=== PATIENT | female | born 1955 | race Caucasian/White ===

== ENCOUNTER 2020-03-31 07:57 | Inpatient (IN) | payer OTHER ==
[~2020-03-31] VITALS: Ht 154.9 cm; Wt 90.7 kg
[2020-03-31] MEDS ORDERED: ACETAMINOPHEN 325MG TABLET PO ONE (08:30)
[2020-03-31 08:32] LABS: BASOPHILS % 0.5 % (0.0-2.0); HEMATOCRIT. 48.3 % (36.0-48.0); HEMOGLOBIN. 16.4 g/dL (12.0-16.0); LYMPHOCYTES % 9.7 % (20.0-50.0); MEAN CORPUSCULAR HEMOGLOBIN 30.7 pg (28.0-32.0); MEAN CORPUSCULAR VOLUME 90.6 fL (81.0-99.0); MEAN PLATELET VOLUME 10.4 fl (7.4-10.4); MONOCYTES % 9.5 % (2.0-8.0); NEUTROPHILS % 80.3 % (40.0-76.0); PLATELET 223 x1000/uL (130-400); RED BLOOD CELL COUNT 5.34 mill/uL (4.2-5.4); RED CELL DISTRIBUTION WIDTH 14.2 % (11.6-14.6)
[2020-03-31 08:39] LABS: CHLORIDE 99 mEq/L (98-107)
[2020-03-31 08:48] LABS: CREATINE KINASE 296 IU/L (26-192)
[2020-03-31 08:51] LABS: D-DIMER 8.08 mg/L FEU (<0.50); INR 1.1; PROTHROMBIN TIME 11.2 sec (9.6-11.0)
[2020-03-31 09:14] LABS: CLARITY URINE CLOUDY (CLEAR); COLOR URINE DARK YELLOW (YELLOW); KETONES URINE TRACE (NEGATIVE); LEUKOCYTE ESTERASE URINE TRACE (NEGATIVE); NITRITE URINE NEGATIVE (NEGATIVE); OCCULT BLOOD URINE 2+ (NEGATIVE); PH URINE 5.5 (4.5-8.0); PROTEIN URINE 4+ (NEGATIVE); SPECIFIC GRAVITY URINE 1.027 (1.005-1.030)
[2020-03-31] MEDS ORDERED: AZITHROMYCIN 500 MG in DEXT 5% WATER 250 ML IV ONE (10:15)
[2020-03-31] MEDS ORDERED: CEFTRIAXONE 1 G PREMIX 50 ML IV ONE (10:15)
[2020-03-31 12:23] LABS: BG BASE EXCESS 0.8 mmol/L (-2.0-2.0); BG CARBOXYHEMOGLOBIN 0.1 % (0.5-1.5); BG DEOXYHEMOGLOBIN 13.3 % (0.0-5.0); BG FRACTION INSPIRED OXYGEN 100; BG HCO3 ACT 24.5 mmol/L (22.0-26.0); BG METHEMOGLOBIN 0.2 % (0.0-1.5); BG OXYGEN SATURATION 86.7 % (92.0-98.5); BG OXYHEMOGLOBIN 86.4 % (94.0-97.0); BG PCO2 36.8 mmHg (35.0-45.0); BG PH 7.442 (7.350-7.450); BG PO2 51.9 mmHg (75.0-100.0); BG SAMPLE SITE RIGHT BRACHIAL; BG TOTAL HEMOGLOBIN 15.1 g/dL (12.0-18.0); BG VENT MODE MASK - NRB
[2020-03-31] MEDS ORDERED: CLONIDINE 0.1MG TABLET PO PRN (14:15)
[2020-03-31] MEDS ORDERED: NA PHOS,M-B/NA PHOS,DI-BA ENEMA 118ML PR PRN (14:15)
[2020-03-31] MEDS ORDERED: GUAIFENESIN 200MG/10ML SUGAR FREE UDC PO PRN (14:15)
[2020-03-31] MEDS ORDERED: ONDANSETRON HCL 4MG/2ML INJ IV PRN (14:15)
[2020-03-31] MEDS ORDERED: MAGNESIUM/ALUMINUM HYDROXIDE/SIMETHICONE 30ML UDC PO PRN (14:15)
[2020-03-31] MEDS ORDERED: DOCUSATE SODIUM 100MG CAPSULE PO PRN (14:15)
[2020-03-31] MEDS ORDERED: ACETAMINOPHEN 325MG TABLET PO PRN ×2 (14:15)
[2020-03-31] MEDS ORDERED: KETOROLAC 15MG/ML VIAL IV PRN (14:15)
[2020-03-31] MEDS ORDERED: ALBUTEROL 6.7GM HFA INHALER ORI PRN (14:15)
[2020-03-31] MEDS ORDERED: TRAMADOL 50MG TABLET PO PRN (14:15)
[2020-03-31] MEDS ORDERED: ENOXAPARIN 40MG/0.4ML SYR SUBCUT SCH (14:15)
[2020-03-31] MEDS ORDERED: SODIUM CHLORIDE 0.9% 1000ML BAG (SEPSIS BOLUS) IV ONE (14:15)
[2020-03-31] MEDS ORDERED: SODIUM CHLORIDE 0.9% 2,730 ML IV SCH (14:45)
[2020-03-31] MEDS: ALBUTEROL 6.7GM HFA INHALER ORI SCH (15:00)
[2020-03-31 16:37] LABS: VITAMIN B12 SERUM >2000 pg/mL pg/mL (211-911)
[2020-03-31 16:39] LABS: FOLIC ACID (FOLATE) SERUM > 20.00 ng/mL (>5.38)
[2020-03-31] MEDS ORDERED: ZOLPIDEM TARTRATE 5MG TABLET PO PRN (21:00)
[2020-03-31] MEDS: FAMOTIDINE 20MG TABLET PO SCH (21:38)
[2020-03-31] MEDS: ENOXAPARIN 30MG/0.3ML SYR SUBCUT SCH (21:38)
[2020-03-31] MEDS: GUAIFENESIN/DM 600MG/30MG ER TAB 12HR PO SCH (21:38)
[2020-03-31] MEDS: ASCORBIC ACID 500 MG TABLET PO SCH (21:38)
[2020-04-01 06:29] LABS: BASOPHILS % 0.6 % (0.0-2.0); EOSINOPHILS % 0.1 % (0.0-5.0); HEMATOCRIT. 47.3 % (36.0-48.0); MEAN CORPUSCULAR HEMOGLOBIN 30.7 pg (28.0-32.0); MEAN CORPUSCULAR VOLUME 90.6 fL (81.0-99.0); MEAN PLATELET VOLUME 10.2 fl (7.4-10.4); MONOCYTES % 5.3 % (2.0-8.0); PLATELET 175 x1000/uL (130-400); RED BLOOD CELL COUNT 5.23 mill/uL (4.2-5.4); RED CELL DISTRIBUTION WIDTH 14.1 % (11.6-14.6)
[2020-04-01 06:53] LABS: CHLORIDE 102 mEq/L (98-107)
[2020-04-01 07:01] LABS: PHOSPHORUS 4.2 mg/dL (2.5-4.9)
[2020-04-01 07:04] LABS: CREATINE KINASE 545 IU/L (26-192); CREATINE KINASE MB FRACTION 3.9 ng/mL (0.5-3.6)
[2020-04-01] MEDS ORDERED: CEFTRIAXONE 1,000 MG in DEXTROSE 5% WATER 50 ML IV SCH (08:00)
[2020-04-01] MEDS ORDERED: CEFTRIAXONE 1 G PREMIX 50 ML IV SCH (09:00)
[2020-04-01] MEDS ORDERED: ASPIRIN 325MG EC TABLET PO SCH (09:00)
[2020-04-01] MEDS ORDERED: ZINC SULFATE 220 MG ( 50 ) CAPSULE PO SCH (09:00)
[2020-04-01] MEDS ORDERED: DEXAMETHASONE 10 MG/ML VIAL IV SCH (09:00)
[2020-04-01] MEDS ORDERED: AZITHROMYCIN 500 MG in DEXT 5% WATER 250 ML IV SCH (09:00)
[2020-04-01 10:00] VITALS: BP 90/60
[2020-04-01 12:00] VITALS: BP 97/63
[2020-04-01] MEDS: FAMOTIDINE 20MG TABLET PO SCH (12:52)
[2020-04-01] MEDS: ENOXAPARIN 30MG/0.3ML SYR SUBCUT SCH (12:52)
[2020-04-01] MEDS: ASCORBIC ACID 500 MG TABLET PO SCH (12:53)
[2020-04-01] MEDS: GUAIFENESIN/DM 600MG/30MG ER TAB 12HR PO SCH ×2 (12:53→21:00)
[2020-04-01 16:00] VITALS: BP 100/63
[2020-04-01 20:00] VITALS: BP 107/67
[2020-04-01] MEDS: ALBUTEROL 6.7GM HFA INHALER ORI SCH ×2 (20:22→21:00)
[2020-04-02] VITALS: BP 104/71
[2020-04-02] MEDS: ENOXAPARIN 30MG/0.3ML SYR SUBCUT SCH (01:02)
[2020-04-02] MEDS: FAMOTIDINE 20MG TABLET PO SCH (01:02)
[2020-04-02] MEDS: ASCORBIC ACID 500 MG TABLET PO SCH (01:03)
[2020-04-02] MEDS: ALBUTEROL 6.7GM HFA INHALER ORI SCH (02:42)
[2020-04-02 04:00] VITALS: BP 102/75
== END 2020-04-02 06:30 | disposition expired | DRG 871 ==
LOC: ER 07:57 → 7WST 11:54 → SUPCPDRO 18:51 → ENRESERV 04-01 07:23
PROVIDERS: ADMIT Internal Medicine; ATTEND Internal Medicine
PROC: 5A09357 Assistance with Respiratory Ventilation, Less than 24 Consecutive Hours, Continuous Positive Airway Pressure (ICD-10-PCS; 2020-04-01)
PROC: 5A12012 Performance of Cardiac Output, Single, Manual (ICD-10-PCS; principal; 2020-04-02)
PROC: 0BH17EZ Insertion of Endotracheal Airway into Trachea, Via Natural or Artificial Opening (ICD-10-PCS; 2020-04-02)
DX: A41.89 Other specified sepsis (principal); U07.1 COVID-19; J12.82 Pneumonia due to coronavirus disease 2019; J96.01 Acute respiratory failure with hypoxia; E43 Unspecified severe protein-calorie malnutrition; N17.9 Acute kidney failure, unspecified; E87.1 Hypo-osmolality and hyponatremia; I10 Essential (primary) hypertension; E78.5 Hyperlipidemia, unspecified; R65.20 Severe sepsis without septic shock; I46.9 Cardiac arrest, cause unspecified; J45.909 Unspecified asthma, uncomplicated; Z68.37 Body mass index [BMI] 37.0-37.9, adult
CPT/HCPCS: 36415; 36600; 71045; 80053; 80061; 81003; 82375; 82550; 82553; 82607; 82728; 82746; 82805; 82962; 83036; 83540; 83550; 83605; 83615; 83735; 83880; 84100; 84145; 84484; 85025; 85379; 85384; 86140; 93005; 93970; 94660; 99291; C9803; J0456; J0696; J1100; J1650; J7060; U0003